=== PATIENT | female | born 1955 | race Two or more races ===

== ENCOUNTER 2023-09-11 16:01 | Emergency (ER) | payer OTHER ==
[~2023-09-11] VITALS: Ht 157.5 cm; Wt 75.7 kg
[2023-09-11] MEDS ORDERED: SIMVASTATIN40 MG PO (17:00)
[2023-09-11] MEDS ORDERED: LEVOTHYROXINE50 MCG PO (17:00)
[2023-09-11] MEDS ORDERED: MONTELUKAST SOD10 MG PO (17:00)
[2023-09-11] MEDS ORDERED: LOSARTAN POTAS100 MG PO (17:00)
[2023-09-11 19:27] LABS: HEMOGLOBIN 13.8 g/dL (12.0-15.00); MEAN CELL VOLUME 89.8 fL (80.00-100.00); MEAN CORPUSCULAR HGB CONC 34.5 g/dl (32.0-36.0); PLATELET COUNT 184 K/uL (150-450); RED BLOOD COUNT 4.45 M/uL (4.00-6.00); RED CELL DISTRIBUTION WIDTH 13.7 % (11.5-14.5)
== END 2023-09-11 22:04 | disposition home or self-care (01) ==
LOC: ER 16:01
PROVIDERS: General Practice
DX: L03.012 Cellulitis of left finger (principal); I10 Essential (primary) hypertension